=== PATIENT | female | born 1985 | race Caucasian/White ===

== ENCOUNTER 2019-01-23 22:40 | Emergency (ER) | payer BC ==
[2019-01-24] MEDS ORDERED: Bacitracin OINTMENT* 0.5% 0.5 oz TUBE TOPICAL ONE (00:53)
[2019-01-24] MEDS ORDERED: Amoxicillin/Clavulanate TAB* 875 MG PO ONE (00:54)
--- NOTE | 2019-01-24 01:02 | ED ---
Bite Injury/Animal - HPI Summary HPI Summary: Pt is a 33 y/o F presenting to the ED with a chief complaint of dog bites. She was walking her dog today when he got into a fight with her neighbors dog, and she got in the middle to try and stop it. She currently complains of ecchymosis , abrasions, and myalgia to the L forearm, hand, and bilateral knees. She denies fevers. She states her tetanus shot is UTD. - History of Current Complaint Chief Complaint: EDAnimalBite Stated Complaint: "DOG BITE PER PT" Time Seen by Provider: 01/24/19 00:47 Hx Obtained From: Patient Onset of Injury: Happened hours ago, Still Present Type of Bite: Pet Has Animal Been Immunized?: Yes Severity Initially: Moderate Severity Currently: Moderate Pain Intensity: 6 Pain Scale Used: 0-10 Numeric Character: Puncture Aggravating Factor(s): Nothing Alleviating Factor(s): Nothing Associated Signs And Symptoms: Negative: Fever Animal Available for Observation: No - Allergies/Home Medications Allergies/Adverse Reactions: Allergies Allergy/AdvReac Type Severity Reaction Status Date / Time No Known Allergies Allergy Verified 01/22/15 15:08 PMH/Surg Hx/FS Hx/Imm Hx Previously Healthy: Yes Endocrine/Hematology History: Denies: Hx Diabetes Cardiovascular History: Denies: Hx Congestive Heart Failure, Hx Hypertension History: Denies: Hx Renal Disease Sensory History: Reports: Hx Contacts or Glasses Opthamlomology History: Reports: Hx Contacts or Glasses Psychiatric History: Reports: Hx Eating Disorder, Hx Depression Denies: Hx of Violent Episodes Against Others - Immunization History Date of Tetanus Vaccine: up to date per pt. Infectious Disease History: No Infectious Disease History: Denies: Traveled Outside the [place] in Last 30 Days - Family History Known Family History: Negative: Cardiac Disease - Social History Alcohol Use: Occasionally Hx Substance Use: No Substance Use Type: Reports: None Hx Tobacco Use: Yes Smoking Status (MU): Former Smoker Have You Smoked in the Last Year: No - Has not smoked in last 30 days Review of Systems Negative: Fever Positive: Myalgia Positive: Bruising, Other - abrasions/wounds All Other Systems Reviewed And Are Negative: Yes Physical Exam - Summary Physical Exam Summary: Appearance: Well-appearing, Well-nourished, lying in bed comfortable Skin: Warm, dry, no obvious rash. R hand has multiple superficial lacs mostly on the palm, none of which appear deep enough to penetrate a joint. Eyes: sclera anicteric, no conjunctival pallor ENT: mucous membranes moist Neck: deferred Respiratory: No signs of respiratory distress Cardiovascular: Appears well perfused, pulses are nml Abdomen: deferred Musculoskeletal: Moving all 4 extremities without obvious discomfort Neurological: Awake and alert, mentation is normal, speech is fluent and appropriate Psychiatric: affect is normal, does not appear anxious or depressed Triage Information Reviewed: Yes Vital Signs On Initial Exam: Initial Vitals Temp Pulse Resp BP Pulse Ox 98.5 F 70 18 123/81 99 01/23/19 22:43 01/23/19 22:43 01/23/19 22:43 01/23/19 22:43 01/23/19 22:43 Vital Signs Reviewed: Yes Diagnostics - Vital Signs Vital Signs Temp Pulse Resp BP Pulse Ox 01/23/19 22:43 98.5 F 70 18 123/81 99 - Laboratory Lab Statement: Any lab studies that have been ordered have been reviewed, and results considered in the medical decision making process. - Radiology Hand XR Radiology Interpretation Completed By: ED Physician Summary of Radiographic Findings: No acute process, pending official radiology report. Bite Injury Course/Dx - Course Course Of Treatment: Pt is a 33 y/o F presenting to the ED with a chief complaint of dog bites. She currently complains of ecchymosis, abrasions, and myalgia to the L forearm, hand, and bilateral knees. She denies fevers. She states her tetanus shot is UTD. On exam, the pt has multiple superficial lacerations of the R hand, mostly on the palm, none of which appear deep enough to penetrate a joint. I discussed proper wound care for the patient and told her I'd be prescribing medications to prevent any possibility of infection. Her wounds will be wrapped and she will be sent home with instructions to take care of the wounds. Pt's hand XR shows no acute process, pending official radiology report. She will be d/c'ed with a dx of dog bite. - Diagnoses Provider Diagnosis: Dog bite Discharge - Sign-Out/Discharge Documenting (check all that apply): Patient Departure Patient Received Moderate/Deep Sedation with Procedure: No - Discharge Plan Condition: Good Disposition: HOME Prescriptions: Amoxicillin/Clavulanate TAB* [Augmentin TAB 875*] 875 mg PO BID #10 tab Patient Education Materials: Animal Bite (ED) Referrals: Karine Lua, [employer] [Primary Care Provider] - Additional Instructions: Good wound care is willard to preventing infection. At least twice a day for the next 2-3 days replace the dressings and clean the wounds with soap and water. Once they are scabbed over and dried they can be left open to air, but you may prefer a dressing. - Billing Disposition and Condition Condition: GOOD Disposition: Home - Attestation Statements Document Initiated by Travon: Yes Documenting Scribe: Ese Chris Provider For Whom Travon is Documenting (Include Credential): Mike Hilton MD. Scribe Attestation: Ese Gant scribed for Mike Hilton MD. on 01/25/19 at 0245. Scribe Documentation Reviewed: Yes Provider Attestation: The documentation as recorded by the sophieibeEse accurately reflects the service I personally performed and the decisions made by Mike maldonado MD. Status of Scribe Document: Viewed
[2019-01-24] MEDS ORDERED: Ibuprofen TAB* 400 MG PO ONE (01:06)
[2019-01-24 02:06] VITALS: BP 121/65
== END 2019-01-24 02:04 | disposition home or self-care (01) ==
LOC: ED 22:40
DX: S50.872A Other superficial bite of left forearm, initial encounter (principal); S61.452A Open bite of left hand, initial encounter; M79.10 Myalgia, unspecified site; Z87.891 Personal history of nicotine dependence; S60.519A Abrasion of unspecified hand, initial encounter; W54.0XXA Bitten by dog, initial encounter; Y92.9 Unspecified place or not applicable
CPT/HCPCS: 99282; A9270-GY